=== PATIENT | male | born 1940 | race Caucasian/White ===

== ENCOUNTER 2017-08-22 07:46 | Outpatient (CLI) | payer MEDICARE ==
--- NOTE | 2017-08-22 11:44 | CT ---
CONTRAST ENHANCED CT IMAGES SOFT TISSUE NECK: Date: 08-22-17 Comparison: 06-14-15 FINDINGS: There is no significant evidence of masses or lesions. No definite evidence of lymphadenopathy seen. Minimal bilateral level II enlarged lymph nodes seen. None of these lymph nodes appears to be patholo gic. No definite evidence of masses or lesions seen in the base of the tongue or in the palatine tons ils. There is some mild atherosclerotic calcification in the proximal right ICA. Some minimal areas o f scarring seen in the apices of both upper lobes, unchanged since the previous exam in 2016. The thyroid is unremarkable. No significant evidence of masses or lesions seen. Pharyngeal mucosal sp maricel is unremarkable. IMPRESSION: 1. No definite evidence of significant masses or lesions seen in the soft tissue neck CT. POS: [facility]
--- NOTE | 2017-08-22 11:49 | CT ---
CT CHEST WITH CONTRAST: Technique: Multiplanar CT images were obtained through the chest with IV enhancement. 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 Comparison: PET CT 04-25-16 FINDINGS: The lung pineda continue to show a nodular opacity within the fistula on the left anteriorly, extendi ng to the pleural surface. This measures up to 2.5 cm AP dimension and does not appear significantly changed indicating chronic pleural scarring. Mild stranding in the anterior right lung base abutting the diaphragm is stable. Tiny nonspecific nodule in the right upper lobe measuring 2-3 mm remains. Mi ld apical pleural thickening and apical parenchymal stranding appears chronic and stable. Mediastinum is unremarkable with no adenopathy identified. No evidence of axillary adenopathy. Images through the upper abdomen reveal bilateral renal cystic lesions, the largest involving the inf erior right kidney measuring up to 4.4 cm, stable in appearance. Visualized liver, spleen, and pancre as unremarkable. No adenopathy in the upper abdomen identified. Osseous structures unremarkable. IMPRESSION: There are stable lung and pleural changes as described above. No acute interval change seen in the ch est. POS: [facility]
== END 2017-08-22 07:47 | disposition home or self-care (01) ==
LOC: SCSCT 07:46
PROVIDERS: ATTEND Internal Medicine Hematology & Oncology
DX: C82.32 Follicular lymphoma grade IIIa, intrathoracic lymph nodes (principal); R49.0 Dysphonia
CPT/HCPCS: 70491; 71260; 82565

== ENCOUNTER 2018-01-02 09:06 | Day surgery (SDC) | payer MEDICARE ==
[2018-01-01 10:31] VITALS: BMI 25.0
[2018-01-02 10:37] LABS: Hemoglobin 13.2 g/dL (14.0-18.0)
[2018-01-02 10:54] LABS: Anion Gap 12 mmol/L (10-20); BUN (Urea Nitrogen) 21 mg/dL (8.4-25.7); Calc. Creatinine Clearance 46 mL/min (70-130); Calcium 9.7 mg/dL (7.8-10.44); Carbon Dioxide 22 mmol/L (23-31); Chloride 106 mmol/L (98-107); Estimated GFR-MDRD 49; Glucose 93 mg/dL (83-110); Sodium 135 mmol/L (136-145)
[2018-01-02] MEDS ORDERED: Fentanyl 100 MCG/2 ML VIAL ONE (11:51)
[2018-01-02] MEDS ORDERED: EPINEPHrine 1 MG/ML AMP ONE (11:51)
[2018-01-02] MEDS ORDERED: Propofol 500 MG/50 ML VIAL ONE (11:52)
[2018-01-02] MEDS ORDERED: Ondansetron HCl/PF 4 MG/2 ML Vial ONE (15:23)
[2018-01-02] MEDS ORDERED: Dexamethasone 20 MG/5 ML VIAL ONE (15:23)
[2018-01-02] MEDS ORDERED: PROPOFOL 200 MG/20 ML VIAL ONE ×2 (15:23)
[2018-01-02] MEDS ORDERED: Succinylcholine Chloride 20 MG/ML 10 ml SYRINGE FS ONE (15:23)
[2018-01-02] MEDS ORDERED: Lidocaine 1% PF 5 ML VIAL ONE (15:23)
--- NOTE | 2018-01-02 16:45 | EKG ---
Test Reason : PREOP Blood Pressure : / mmHG Vent. Rate : 050 BPM Atrial Rate : 050 BPM P-R Int : 230 ms QRS Dur : 102 ms QT Int : 468 ms P-R-T Axes : 006 054 049 degrees QTc Int : 426 ms Sinus bradycardia with 1st degree A-V block Otherwise normal ECG When compared with ECG of 21-AUG-2013 12:35, No significant change was found Confirmed by MARIO STATON, SKy ([id number]) on 01/02/2018 4:44:35 PM Referred By: JUAN CARLOS Confirmed By:DR. Belinda MARTIN MD
--- NOTE | 2018-01-03 10:46 | OP ---
PREOPERATIVE DIAGNOSES: 1. Left true vocal cord mass. 2. Dysphonia. POSTOPERATIVE DIAGNOSES: 1. Left true vocal cord mass. 2. Dysphonia. PROCEDURES PERFORMED: Microsuspension direct laryngoscopy with biopsy. SURGEON: Piyush Quinonez M.D. ESTIMATED BLOOD LOSS: 0 mL COMPLICATIONS: None. ANESTHESIA: GETA. DESCRIPTION OF PROCEDURE: The patient was taken to the operating room and placed supine on the table . General endotracheal anesthesia was obtained by Anesthesia staff. A 4.5 cuffed endotracheal tube was then secured in the left lower lip and the bed was turned 90 degrees. A shoulder roll was placed . Protective mouth and tooth guards were placed as the Dedo laryngoscope was introduced in the oral cavity. The oral cavity and oropharynx mucosa were within normal limits. Posterior pharyngeal anderson , lateral pharyngeal anderson, piriform sinuses, vallecula, and epiglottis were all within normal limits . Following this, the patient was then placed in suspension, exposing the laryngeal inlet. The inte rarytenoid area and subglottic area were noted to be healthy. 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 Using the microlaryngeal scissors and microlaryngeal forceps, these areas were gently removed and sent for pathological analysis. Following this, an ephedrine soaked pledget was allowed to soak in this area for approximately 2 minutes prior to being removed. The patient was then awake mia from anesthesia without complications.
== END 2018-01-02 15:15 | disposition home or self-care (01) ==
LOC: SDC 09:06
PROVIDERS: ATTEND Otolaryngology Plastic Surgery within the Head & Neck
PROC: 0CBS8ZX Excision of Larynx, Via Natural or Artificial Opening Endoscopic, Diagnostic (ICD-10-PCS; principal; 2018-01-02)
DX: D02.0 Carcinoma in situ of larynx (principal); E78.00 Pure hypercholesterolemia, unspecified; Z79.899 Other long term (current) drug therapy
CPT/HCPCS: 80048; 85014; 85018; 88305; 93005; 93010; J0171; J1100; J2001; J2405; J2704; J3010

== ENCOUNTER 2018-01-11 10:14 | Outpatient (CLI) | payer MEDICARE, OTHER ==
--- NOTE | 2018-01-11 12:47 | CT ---
CT NECK SOFT TISSUES: DATE: 01/11/2018. HISTORY: A 77-year-old male with J38.3 lesion of vocal cord. History of lymphoma. COMPARISON: 06/14/2015. FINDINGS: No cervical lymphadenopathy by size criteria. Atherosclerotic calcification of bilateral carotid bul bs, right greater than left. No other abnormality of carotid space. The retropharyngeal, periverteb ral, parapharyngeal, parotid, submandibular, and hem inspector, spaces, are unremarkable. Effacement of the right glossopharyngeal sulcus is again noted, similar to previous CT. No mass in the vallecula, hypopharynx, or larynx. There are severe degenerative facet changes on the right at C4-5. The srini nx is asymmetrically shifted to the right relative to the cervical spine as seen on the axial images, such that the superior cornua of the left thyroid cartilage encroaches upon the left retropharyngeal space. This is unchanged since 08/22/2017 and 06/14/2015. An MRI of the neck of 06/17/2015 showed a sm all nodule in the superficial lobe of the left parotid gland, anterior o the left external auditory c anal. That nodule is difficult to visualize on the CT, especially with streak artifact emanating fro m metallic dental work. The bilateral tympanomastoid cavities, and the maxillary and sphenoid sinuse s, are grossly clear. There has been no major interval change. The adenoids are not enlarged. The right palatine tonsil is slightly more prominent than the left, nonspecific. IMPRESSION: 1. Cervical spondylosis. 2. Carotid atherosclerosis. 3. Chronic asymmetry of the larynx relative to the C-spine as mentioned above, with left upper cornu of thyroid cartilage chronically encroaching on retropharyngeal space. 4. No major interval change since 08/22/2017 and 06/14/2015. POS: [facility]
[2018-01-11] MEDS ORDERED: Iopamidol 370 76% 100 ML VIAL ONE (13:27)
== END 2018-01-11 10:15 | disposition home or self-care (01) ==
LOC: CT 10:14
PROVIDERS: ATTEND Otolaryngology Plastic Surgery within the Head & Neck
DX: J38.3 Other diseases of vocal cords (principal); M47.892 Other spondylosis, cervical region; I65.23 Occlusion and stenosis of bilateral carotid arteries
CPT/HCPCS: 70491

== ENCOUNTER 2021-10-31 08:58 | Outpatient (CLI) | payer MEDICARE, OTHER | END 2021-10-31 08:59 | disposition home or self-care (01) | LOC: SCSMRI 08:58 | PROVIDERS: ATTEND Family Medicine | DX: R41.3 Other amnesia (principal); Q28.3 Other malformations of cerebral vessels; R90.82 White matter disease, unspecified | CPT/HCPCS: 70553 ==

== ENCOUNTER 2022-08-22 10:04 | Outpatient (CLI) | payer MEDICARE, OTHER ==
[2022-08-22 10:47] LABS: #Eosinphils 0.1 10x3/uL (0.0-0.5); #Monocytes 0.5 10x3/uL (0.0-1.1); %Basophils 0.6 % (0.0-2.0); %Eosinophils 1.6 % (0.0-6.0); %Lymphocytes 19.8 % (18.0-47.0); %Monocytes 7.3 % (0.0-10.0); %Neutrophils 70.6 % (40.0-75.0); Hemoglobin 12.6 g/dL (13.5-17.5); Mean Corpuscular HGB CONC 33.2 g/dL (32.0-36.0); Mean Corpuscular Hemoglobin 31.7 pg (27.0-33.0); Mean Corpuscular Volume 95.5 fl (81.2-95.1); Mean Platelet Volume 10.1 fl (7.4-10.4); Platelet Count 192 10x3/uL (150-450); RBC Distribution Width 13.2 % (11.5-14.5); Red Blood Cell (RBC) Count 3.98 10x6/uL (4.32-5.72); White Blood Cell (WBC) Count 7.1 10x3/uL (3.5-10.5)
[2022-08-22 11:07] LABS: Anion Gap 14 mmol/L (10-20); BUN (Urea Nitrogen) 19 mg/dL (8.4-25.7); Calc. Creatinine Clearance 0 mL/min (70-130); Calcium 9.8 mg/dL (7.8-10.44); Carbon Dioxide 26 mmol/L (23-31); Chloride 105 mmol/L (98-107); Estimated GFR 58; Glucose 82 mg/dL (83-110); Potassium 4.6 mmol/L (3.5-5.1); Sodium 140 mmol/L (136-145)
== END 2022-08-22 10:05 | disposition home or self-care (01) ==
LOC: LABBT 10:04
PROVIDERS: ATTEND Surgery
DX: Z01.812 Encounter for preprocedural laboratory examination (principal); K40.90 Unilateral inguinal hernia, without obstruction or gangrene, not specified as recurrent
CPT/HCPCS: 80048; 85025; 93005; 93010